=== PATIENT | male | born 1975 | race Caucasian/White ===

== ENCOUNTER 2020-01-15 06:32 | Outpatient (CLI) | payer MEDICAID ==
[~2020-01-15] VITALS: Ht 185.4 cm; Wt 134.3 kg
[~2020-01-15 06:32] MED LIST: NO HOME MEDS
[2020-01-15] MEDS ORDERED: albuterol 2.5 MG/3 ML nebule NEB ONE (07:35)
== END 2020-01-15 23:59 | disposition home or self-care (01) ==
LOC: RT 06:32
PROVIDERS: ATTEND Family Medicine
DX: J44.9 Chronic obstructive pulmonary disease, unspecified (principal)
CPT/HCPCS: 94060; 94760

== ENCOUNTER 2021-06-24 05:22 | Day surgery (SDC) | payer MEDICAID ==
[2021-06-17 12:42] LABS: BASOPHILS % (AUTO) 0.6 % (0-1); EOSINOPHILS # (AUTO) 0.2 X10'3 (0-0.9); EOSINOPHILS % (AUTO) 2.7 % (0-6); LYMPHOCYTES % (AUTO) 26.4 % (21-51); MEAN CORPUSCULAR HEMOGLOBIN 26.4 PG (27.0-31.0); MEAN CORPUSCULAR HGB CONC 32.8 g/dL (33.0-36.5); MEAN CORPUSCULAR VOLUME 80.3 FL (78-98); MEAN PLATELET VOLUME 8.7 FL (7.4-10.4); MONOCYTES # (AUTO) 0.6 X10'3 (0-0.9); MONOCYTES % (AUTO) 8.7 % (2-12); NEUTROPHILS # (AUTO) 4.6 X10'3 (1.8-7.7); NEUTROPHILS % (AUTO) 61.6 % (42-75); PRE OP HEMATOCRIT 40.9 % (42.0-52.0); PRE OP HEMOGLOBIN 13.4 g/dL (14.0-17.9); PRE OP PLATELET COUNT 186 X10'3 (140-440); RED BLOOD COUNT 5.09 X10'6 (4.70-6.10); RED CELL DISTRIBUTION WIDTH 16.2 % (11.5-14.5)
[2021-06-17 12:52] LABS: PRE OP PROTIME 10.3 SECONDS (9.0-12.0)
[2021-06-17 12:54] LABS: ALBUMIN 3.6 G/DL (3.4-5.0); ALBUMIN/GLOBULIN RATIO 0.8 (1.1-1.5); ALKALINE PHOSPHATASE 110 IU/L (46-116); BLOOD UREA NITROGEN 11 MG/DL (7-18); BUN/CREATININE RATIO 11.3 (5.4-32.0); CHLORIDE 104 MMOL/L (99-107); CREATININE 0.97 MG/DL (0.60-1.10); PRE OP ALT 45 U/L (30-65); PRE OP ANION GAP 11 (8-16); PRE OP AST 34 U/L (10-37); PRE OP BILIRUB, TOTAL 0.1 MG/DL (0.0-1.0); PRE OP GLUCOSE 100 MG/DL (70-104); PRE OP POTASSIUM 4.1 MMOL/L (3.4-5.1); PRE OP SODIUM 141 MMOL/L (135-145); TOTAL CARBON DIOXIDE 25.7 MMOL/L (24-32); TOTAL PROTEIN 8.2 G/DL (6.4-8.2); eGFR 84 ML/MIN
[2021-06-24] VITALS (12 sets, daily range): BP systolic 100–164; BP diastolic 66–96
[~2021-06-24] VITALS: Ht 185.4 cm; Wt 168.7 kg
[~2021-06-24 05:22] MED LIST changes: +ALBU8.5H17 INH; +GABA300T25 PO; +METH-603 PO; +MONT10TA21 PO; +NAPR-56 PO; -NO HOME MEDS; +ringers solution, lacted 1,000 ML IV SCH
[2021-06-24] MEDS ORDERED: albuterol 2.5 MG/3 ML nebule NEB PRN (05:30)
[2021-06-24] MEDS ORDERED: famotidine 20mg tablet PO ONE (05:30)
[2021-06-24] MEDS ORDERED: ceFAZolin inj. 3,000 MG in normal saline 100ml IV soln 100 ML IV ONE (05:30)
[2021-06-24] MEDS ORDERED: BUPIVAcaine/PF 2.5mg/ml (0.25%) 10ml vial ONE (06:55)
[2021-06-24] MEDS ORDERED: LIDOcaine 1% 30ml preserv. free vial ONE (06:55)
[2021-06-24] MEDS ORDERED: sevoflurane 250ml liquid IH ONE (07:43)
[2021-06-24] MEDS ORDERED: rocuronium 10mg/ml inj IV ONE ×2 (07:43→07:44)
[2021-06-24] MEDS ORDERED: fentaNYL /PF 50mcg/ml 5ml ampule ONE (07:44)
[2021-06-24] MEDS ORDERED: midazolam 1 mg/ML 2ml injection ONE (07:44)
[2021-06-24] MEDS ORDERED: propofol inj 20 ML IV ONE ×2 (07:44→08:18)
[2021-06-24] MEDS ORDERED: dexamethasone sod phosphate 4mg/ml inj. ONE (08:22)
[2021-06-24] MEDS ORDERED: proCHLORperazine 10 MG/2 ml inj IV PRN (09:00)
[2021-06-24] MEDS ORDERED: morphine 2 MG/ML inj. syringe IV PRN (09:00)
[2021-06-24] MEDS ORDERED: meperidine/PF 25mg/ml syringe IV PRN ×3 (09:00)
[2021-06-24] MEDS ORDERED: ringers solution, lacted 1,000 ML IV SCH (09:00)
[2021-06-24] MEDS ORDERED: ondansetron/PF 4mg/2ml inj IV PRN (09:00)
[2021-06-24] MEDS ORDERED: morphine 4 MG/ML inj SYRINge IV PRN (09:00)
[2021-06-24] MEDS ORDERED: ondansetron/PF 4mg/2ml inj ONE (09:01)
[2021-06-24] MEDS ORDERED: glycopyrrolate 0.2mg/ml inj ONE (09:05)
[2021-06-24] MEDS ORDERED: neostigmine methylsulfate 1 MG/ML 10ml vial ONE (09:05)
[2021-06-24] MEDS ORDERED: sugammadex 200mg/2ml injection IV ONE (09:20)
[2021-06-24] MEDS ORDERED: HYDROcodone/acetaminophen 5mg/325mg tablet PO PRN ×2 (09:25)
--- NOTE | 2021-06-24 09:25 | NUR ---
Received from OR via [facility] , accompanied by Anesthesiologist GODWIN and report given by Anesthesiolgist. PATIENT CRYING, MEDICATED FOR PAIN. 3 LAP BANDAIDS TO ABDOMEN THAT ARE CDI. MEDICATED UPON ARRIVAL. Addendum: 06/24/21 at 0939 by Michael Olvera RN, RN Amended: Links added.
[2021-06-24] MEDS ORDERED: albuterol 2.5 MG/3 ML nebule NEB ONE (10:25)
--- NOTE | 2021-06-24 11:55 | NUR ---
PATIENT HAS MET ALL DC CRITERIA. VSS. DENIES PAIN AT THIS TIME. PATIENTS CENTRAL LINE IN RIGHT NECK PULLED AND PRESSURE HELD X5 MINUTES WITH NO DRAINAGE TO DRESSING. VSS. MD DUFF AGREES THAT UPON BLADDER SCAN OF 2CC PATIENT CAN GO HOME UNDER THE PREFACE THAT IF HE CANNOT VOID THAT HE COME BACK TO THE ED FOR A BARRETT CATHETER PLACEMENT. PATIENT STATES THAT HE WILL GO HOME AND MONITOR HIS ABILITY TO VOID. (PATIENT EMPTIED BLADDER ON OR TABLE AFTER EXTUBATION AND MD WAS AWARE OF THIS ) PATIENT DRESSED WITH MINIMAL ASSIST. STOOD AND PUT ON SHIRT AND TUCKED ALL CLOTHING IN. TAKEN HOME BY TRANSPORT COMPANY IN STABLE CONDITION AND WITH NO DRAINAGE TO ABDOMINAL DRESSINGS NOR RIGHT NECK DRESSING. Addendum: 06/24/21 at 1204 by Michael Olvera RN RN Amended: Links added.
== END 2021-06-24 11:55 | disposition home or self-care (01) ==
LOC: PAS 05:22
PROVIDERS: ATTEND Surgery
DX: K40.90 Unilateral inguinal hernia, without obstruction or gangrene, not specified as recurrent (principal); G89.29 Other chronic pain; J44.9 Chronic obstructive pulmonary disease, unspecified; G47.33 Obstructive sleep apnea (adult) (pediatric); Z79.899 Other long term (current) drug therapy; Z98.890 Other specified postprocedural states; Z87.891 Personal history of nicotine dependence; Z72.89 Other problems related to lifestyle; Z79.01 Long term (current) use of anticoagulants
CPT/HCPCS: 36415; 49650; 71045; 71046; 80053; 85025; 85610; 85730; 94640; 94760; C1781; C9399; J0690; J1100; J2001; J2175; J2250; J2270; J2405; J2704; J2710; J3010; J3490; S2900; U0003; U0005; Z7506; Z7508; Z7512; A4215; A4618; J7120